=== PATIENT | female | born 1970 | race Caucasian/White ===

== ENCOUNTER 2016-09-11 19:54 | Emergency (ER) | payer OTHER ==
[~2016-09-11] VITALS: Ht 170.2 cm; Wt 72.6 kg
[~2016-09-11 19:54] MED LIST: ERRIN0.35 MG PO; OXYCODONE-ACET1 EACH PO; VENLAFAXINE HC150 MG PO
--- NOTE | 2016-09-11 20:49 | ED SKIN/ALLERGY COMPLAINT ---
History of Present Illness General Chief Complaint: Skin Rash/ Abcess Stated Complaint: " SEVERE ECZEMA ON HANDS AND FEET CRACKING/BLEED" Source: patient, family Exam Limitations: no limitations Vital Signs & Intake/Output Vital Signs & Intake/Output Vital Signs Date Time Temp Pulse Resp B/P B/P Pulse O2 O2 Flow FiO2 Mean Ox Delivery Rate 09/11 2116 98.6 100 18 120/88 97 Room Air 09/11 2002 98.6 108 18 118/80 96 Room Air Allergies Coded Allergies: Penicillins (HIVES 02/09/16) Reconcile Medications Norethindrone (Amber) 0.35 MG TAB 1 TAB PO DAILY BC (Reported) Oxycodone HCl/Acetaminophen (Oxycodone-Acetaminophen 5-325) 1 EACH TABLET 1 TAB PO BIDP PRN PAIN (Reported) Prednisone 10 MG TABLET 0 PO DAILY eczema 4 tabs po qd x 3 days, 3 tabs po qd x 3 days, 2 tabs po qd x 3 days, 1 tab po qd x 3 days Venlafaxine HCl (Venlafaxine HCl ER) 150 MG CAP.ER.24H 1 CAP PO DAILY MENTAL HEALTH (Reported) Triage Note: PT TO ED C/O ECZEMA TO HANDS AND FEET, SKIN CRACKING AND "BURNING" FOR A YEAR, WORSE OVER THE LAST 5-6 MONTHS. LAST SAW A DEMATOLOGIST ON 05/12/16. HAS BEEN USING MEDS, NOT GETTING BEETER STATES DOES NOT HAVE A DERMATOILOGIST NOW NOW SHE IS ON HUSKY Triage Nurses Notes Reviewed? yes HPI: Patient is a 46-year-old female presents complaining of severe eczema rash to her bilateral hands and feet. Rash has been present for over one year. Patient has been to the fire truck driver twice, has used multiple steroid creams with no improvement. Patient has tried to use steroid creams with gloves overnight reports that the burning becomes severe and she is not able to tolerated. Patient reports that skin is cracking and severely painful. Patient is not able to follow-up with the fire truck driver due to her insurance. Patient denies purulent drainage, fevers. (BERNABE OLIVEIRA) Past History Travel History Traveled to [place] past 21 day No Medical History Any Pertinent Medical History? see below for history Neurological: NONE EENT: NONE Cardiovascular: NONE Respiratory: NONE Gastrointestinal: NONE Hepatic: NONE Renal: NONE Musculoskeletal: fibromyalgia, HERNIATED DISC DIFUSSION ECZEMA Psychiatric: anxiety, depression Endocrine: NONE Blood Disorders: NONE Cancer(s): NONE BACK TENDER PAPER MACHINE/Reproductive: NONE Other Medical Hx: Chronic back pain Fibromyalgia History of MRSA: No History of VRE: No History of CDIFF: No Surgical History Surgical History: spinal fusion, Disc herniation. Psychosocial History Who do you live with Patient/Self Services at Home None What is your primary language Kiswahili Tobacco Use: Current Daily Use Daily Tobacco Use Amount/Type: => 5 Cigarettes daily ETOH Use: occasional use Illicit Drug Use: denies illicit drug use Family History Family History, If Any: FATHER (Prostate cancer). MOTHER (Stroke, HTN, DM, glaucoma). Hx Contributory? No (BERNABE OLIVEIRA) Review of Systems Review of Systems Constitutional: Denies: chills, fever. Musculoskeletal: Reports: no symptoms. Skin: Reports: see HPI. Neurological/Psychological: Denies: numbness. Hematologic/Endocrine: Reports: bleeding (from cracks in skin). Denies: bruising. Immunologic/Allergic: Reports: no symptoms. (BERNABE OLIVEIRA) Physical Exam Physical Exam General Appearance: well developed/nourished, alert, awake Head: atraumatic, normal appearance Eyes: Bilateral: normal appearance. Ears, Nose, Throat: hearing grossly normal Respiratory: no respiratory distress Back: normal inspection, normal range of motion Extremities: severe eczema to bilateral hands on the palmar surface and to the bilateral feet. Skin: eczema present on bilateral hands and feet (BERNABE OLIVEIRA) Progress Differential Diagnosis: abscess/cellulitis, contact dermatitis, eczema Plan of Care: Current Medications Sig/Kelly Start time Last Medication Dose Stop Time Status Admin Prednisone 60 MG ONCE ONE 09/11 2100 AC 09/11 No signs of superimposed cellulitis. (BERNABE OLIVEIRA) Departure Departure Time of Disposition: 2056 Disposition: HOME OR SELF CARE Condition: Stable Clinical Impression Primary Impression: Eczema Qualifiers: Eczema type: unspecified Qualified Code: L30.9 - Dermatitis, unspecified Referrals: EMMETT CORDOVA,HANY Edwards (PCP/Family) Additional Instructions: Follow up with her primary doctor for further evaluation. Call for appointment. Continue to use your topical steroid cream as previously directed. Return to the emergency department if pus draining from the areas, fevers, redness spreading, or worsening of symptoms. Departure Forms: Customer Survey General Discharge Information Prescriptions: Current Visit Scripts Prednisone 0 PO DAILY #30 TAB 4 tabs po qd x 3 days, 3 tabs po qd x 3 days, 2 tabs po qd x 3 days, 1 tab po qd x 3 days (KESHIA CARRANZA,BERNABE) PA/WIRE FENCE BUILDER Co-Sign Statement Statement: ED Attending supervision documentation- [] I saw and evaluated the patient. I have also reviewed all the pertinent lab results and diagnostic results. I agree with the findings and the plan of care as documented in the PA's/WIRE FENCE BUILDER's documentation. [X] I have reviewed the ED Record and agree with the PA's/WIRE FENCE BUILDER's documentation. [] Additions or exceptions (if any) to the PAs/WIRE FENCE BUILDER's note and plan are summarized below: [] (HOLLEY CORDOVA,SAQIB Edwards)
[2016-09-11] MEDS ORDERED: PREDNISONE10 M2 PO (20:59)
[2016-09-11 21:17] VITALS: BP 120/88
== END 2016-09-11 21:18 ==
LOC: ERH 19:54
DX: L30.9 Dermatitis, unspecified (principal)